=== PATIENT | male | born 1995 | race Caucasian/White ===

== ENCOUNTER 2017-10-20 11:50 | Emergency (ER) | payer BC ==
[2017-10-20 13:56] LABS: ABS Basophils 0.1 10^3/ul (0-0.2); ABS Eosinophils 0.1 10^3/ul (0-0.6); ABS Lymphocytes 1.9 10^3/ul (1.0-4.8); ABS Monocytes 1.5 10^3/ul (0-0.8); ABS Neutrophils 7.4 10^3/ul (1.5-7.7); ABS Nucleated RBC 0 10^3/ul; Hematocrit 44 % (42-52); Hemoglobin 15.5 g/dl (14.0-18.0); Lymphocyte % 17.2 % (25-47); Mean Corpuscular HGB Conc 35 g/dl (31-36); Mean Corpuscular Hemoglobin 32 pg (27-31); Mean Corpuscular Volume 91 fL (80-94); Mean Platelet Volume 6.7 um3 (7.4-10.4); Nucleated Red Blood Cells % 0; Platelet Count 249 10^3/ul (150-450); Red Cell Distribution Width 13 % (10.5-15); White Blood Count 10.9 10^3/ul (3.5-10.8)
[2017-10-20 14:15] LABS: EGFR Non-African American 123.8 (>60)
--- NOTE | 2017-10-20 14:29 | RAD ---
INDICATION: Atraumatic left hip pain COMPARISON: None TECHNIQUE: An AP view of the pelvis and AP views of the hip in neutral and abducted position were obtained FINDINGS: Bones: There are no acute bony findings. There is no plain radiographic evidence of avascular necrosis. Joint spaces: The hips articulate normally. The joint spaces are preserved. SI joints/symphysis: The SI joints and symphysis are intact. Other: None IMPRESSION: NO PLAIN RADIOGRAPHIC ABNORMALITIES.
--- NOTE | 2017-10-20 16:23 | RAD ---
INDICATION: Left hip pain COMPARISON: None TECHNIQUE: Transverse and longitudinal scans of the left hip were performed utilizing grayscale and color Doppler imaging. FINDINGS: There is a small joint effusion. No additional findings. IMPRESSION: THERE IS A SMALL LEFT HIP JOINT EFFUSION.
[2017-10-20] MEDS ORDERED: Acetaminophen TAB* 325 MG PO ONE (18:12)
[2017-10-20 19:25] VITALS: BP 122/70
[2017-10-20 19:36] LABS: Urine Appearance Clear; Urine Blood Negative (Negative); Urine Color Yellow; Urine Ketones Negative (Negative); Urine Protein Negative (Negative); Urine Specific Gravity 1.023 (1.010-1.030); Urine Urobilinogen Negative (Negative)
--- NOTE | 2017-10-31 12:52 | ED ---
Michelle Rosenthal Jason, scribed for Piyush Wells MD on 10/20/17 at 1351 . Lower Extremity - HPI Summary HPI Summary: This patient is a 22 year old M presenting to [facility] with a chief complaint of left hip pain since today. The patient states he began experiencing hip pain today and came in because he has had similar pain 2 years ago that resulted in a surgery. Pt had surgery on his hip to resolve the pain, as the physicians suspected possible infection. Additionally, he has a hx of Colitis. Regarding the pain 2 years ago, it started small and progressed to excruciating pain where I couldnt even move. He includes he went [place] 3 [place]. The patient rates the pain 4/10 in severity. Symptoms aggravated by movement. Symptoms alleviated by nothing. Patient denies testicle pain, and groin lumps. - History of Current Complaint Chief Complaint: EDHipPelvisInjury Stated Complaint: LT HIP INJURY Time Seen by Provider: 10/20/17 13:33 Hx Obtained From: Patient Mechanism Of Injury: Unknown Onset/Duration: Still Present Pain Intensity: 4 Pain Scale Used: 0-10 Numeric Timing: Constant Associated Signs And Symptoms: Positive: Other - left hip pain Aggravating Factor(s): Movement Alleviating Factor(s): Nothing - Allergies/Home Medications Allergies/Adverse Reactions: Allergies Allergy/AdvReac Type Severity Reaction Status Date / Time No Known Allergies Allergy Verified 10/20/17 13:27 Home Medications: Home Medications Mesalamine [Lialda] 4 tab PO .ONCE DAILY 10/20/17 [History Confirmed 10/20/17] PMH/Surg Hx/FS Hx/Imm Hx Previously Healthy: No GI History: Reports: Other GI Disorders - Colitis Musculoskeletal History: Reports: Other Musculoskeletal History - previous history of left hip pain that resulted in surgery. EENT History: Denies: Hx Deafness Infectious Disease History: No Infectious Disease History: Denies: Traveled Outside the [place] in Last 30 Days - Family History Known Family History: Negative: Blood Disorder - Social History Occupation: Student Lives: Alone Alcohol Use: Weekly Alcohol Amount: 2-3 times/week Substance Use Type: Reports: None Smoking Status (MU): Never Smoked Tobacco Review of Systems Genitourinary: Negative - testicle pain Musculoskeletal: Negative - groin lumps Positive: Other - left hip pain All Other Systems Reviewed And Are Negative: Yes Physical Exam - Summary Physical Exam Summary: Constitutional: Well-developed, Well-nourished, Alert. (-) Distressed Skin: Warm, Dry HENT: Normocephalic; Atraumatic Eyes: Conjunctiva normal Neck: Musculoskeletal ROM normal neck. (-) JVD, (-) Stridor, (-) Tracheal deviation Cardio: Rhythm regular, rate normal, Heart sounds normal; Intact distal pulses; The pedal pulses are 2+ and symmetric. Radial pulses are 2+ and symmetric. (-) Murmur Pulmonary/Chest wall: Effort normal. (-) Respiratory distress, (-) Wheezes, (-) Rales Abd: Soft, (-) Tenderness, (-) Distension, (-) Guarding, (-) Rebound Musculoskeletal: (-) Edema. Surgical scars present over last anterior hip. Left hip experiences pain over passive and active range of motion. Lymph: (-) Cervical adenopathy Neuro: Alert, Oriented x3 Psych: Mood and affect Normal Triage Information Reviewed: Yes Vital Signs On Initial Exam: Initial Vitals Temp Pulse Resp BP Pulse Ox 99.0 F 88 18 114/86 96 10/20/17 12:06 10/20/17 12:06 10/20/17 12:06 10/20/17 12:06 10/20/17 12:06 Vital Signs Reviewed: Yes Diagnostics - Vital Signs Vital Signs Temp Pulse Resp BP Pulse Ox 10/20/17 13:05 79 97 10/20/17 13:04 126/74 10/20/17 12:06 99.0 F 88 18 114/86 96 - Laboratory Result Diagrams: 10/20/17 13:47 10/20/17 13:47 Lab Statement: Any lab studies that have been ordered have been reviewed, and results considered in the medical decision making process. - Radiology hip/pelvis xray Radiology Interpretation Completed By: Radiologist - Hip/pelvis xray reveals, per radiologist, NO PLAIN RADIOGRAPHIC ABNORMALITIES. ED physician has reviewed this radiology report. - Additional Comments Diagnostic Additional Comments: Soft tissue ultrasound reveals, per radiologist, THERE IS A SMALL LEFT HIP JOINT EFFUSION. ED physician has reviewed this radiology report. Re-Evaluation - Re-Evaluation First Eval Re-Evaluation Time: 15:34 Change: Improved - Patient was able to ambulate on reevaluation. Pain occurred only during internal rotation of the hip. Lower Extremity Course/Dx - Course Assessment/Plan: There is left hip experiences pain over passive and active range of motion. Dr. Wells has a concern for possible bursitis, arthritis, secondary to ulcerative colitis. At 1545, he discussed labs with Dr. Rodriguez ( orthopedics midwife practitioner), who stated there is no risk of septic joint. Additionally , at 1553 Dr. Wells discussed the patients condition with the patients mother , who is a psychiatrist. The mother states she discussed the patients condition with the patients orthopedist in [place] and requested that an ultrasound be performed. Dr. Wells discussed his case again with Dr. Rodriguez as well as with Dr. Zarco. We discussed the small hip effusion on US, negative markers, and outpatient management. The effusion is likely to overuse. Dr. Wells discussed with his mother, she is in agreement with this plan. I encouraged him not to take his trip to [place] and to return home. We will provide crutches. Patient will be discharged and follow up with Dr. Zarco in 3-5 days. Patient is agreeable with this plan. Dx of left hip effusion. - Diagnoses Provider Diagnoses: Effusion, left hip Discharge - Sign-Out/Discharge Documenting (check all that apply): Discharge - Discharge Plan Condition: Stable Disposition: HOME Patient Education Materials: Swollen Hip Joint (ED) Referrals: Delia Zarco MD [Other] - 5 Days Additional Instructions: RETURN TO THE EMERGENCY DEPARTMENT FOR CHANGING OR WORSENING SYMPTOMS The documentation as recorded by the Michelle crump Jason accurately reflects the service I personally performed and the decisions made by , Piyush Wells MD.
== END 2017-10-20 18:40 | disposition home or self-care (01) ==
LOC: ED 11:50
DX: M25.452 Effusion, left hip (principal); M25.552 Pain in left hip
CPT/HCPCS: 36415; 80053; 81003; 83605; 83690; 85025; 85652; 86140; 99283

== ENCOUNTER 2018-10-06 20:28 | Emergency (ER) | payer BC ==
[2018-10-06 20:50] VITALS: BP 115/71
[2018-10-06] MEDS ORDERED: Sulfamethox/Trimethoprim DS 800/160* TAB PO ONE (21:34)
--- NOTE | 2018-10-06 21:35 | UC ---
Skin Complaint HPI - HPI Summary HPI Summary: tender area left lateral upper thigh---red warm tender to touch worsening over the course of the day - History of Current Complaint Chief Complaint: UCSkin Time Seen by Provider: 10/06/18 21:29 Stated Complaint: L LEG SKIN COMPLAINT Hx Obtained From: Patient Hx From Patient Unobtainable Due To: Other Onset/Duration: Sudden Onset, Lasting Days - 1, Still Present, Worse Since - getting worse through out the day Timing: Constant Onset Severity: Mild Current Severity: Moderate Location: Discrete Character: Redness, Raised Aggravating Factor(s): Touch Alleviating Factor(s): Nothing Associated Signs & Symptoms: Positive: Tenderness. Negative: Drainage - Allergy/Home Medications Allergies/Adverse Reactions: Allergies Allergy/AdvReac Type Severity Reaction Status Date / Time droperidol Allergy See Comment Verified 10/06/18 20:53 metoclopramide [From Reglan] Allergy See Comment Verified 10/06/18 20:53 Home Medications: Home Medications Escitalopram * [Lexapro *] 20 mg PO DAILY 10/06/18 [History Confirmed 10/06/18] PMH/Surg Hx/FS Hx/Imm Hx Previously Healthy: Yes GI/ History: Other Other GI/ History: IBS Psychological History: Anxiety - Surgical History Surgical History: Yes Surgery Procedure, Year, and Place: left hip joint drained - Family History Known Family History: Positive: None Negative: Blood Disorder - Social History Occupation: Student Lives: Dormitory/Roommates Alcohol Use: Weekly Alcohol Amount: 2-3 times/week Substance Use Type: None Smoking Status (MU): Never Smoked Tobacco Review of Systems All Other Systems Reviewed And Are Negative: Yes Constitutional: Positive: Negative Skin: Positive: Other - 2 inch diameter red indurated area no drainage Eyes: Positive: Negative ENT: Positive: Negative Respiratory: Positive: Negative Cardiovascular: Positive: Negative Gastrointestinal: Positive: Negative Genitourinary: Positive: Negative Motor: Positive: Negative Neurovascular: Positive: Negative Musculoskeletal: Positive: Negative Neurological: Positive: Negative Psychological: Positive: Negative Is Patient Immunocompromised?: Yes Physical Exam Triage Information Reviewed: Yes Appearance: Well-Appearing, No Pain Distress, Well-Nourished Vital Signs: Initial Vital Signs Temp 99.0 F 10/06/18 20:47 Pulse 64 10/06/18 20:47 Resp 16 10/06/18 20:47 BP 115/71 10/06/18 20:47 Pulse Ox 98 10/06/18 20:47 Vital Signs Reviewed: Yes Eye Exam: Normal Eyes: Positive: Conjunctiva Clear ENT Exam: Normal ENT: Positive: Normal ENT inspection, Hearing grossly normal. Negative: Nasal congestion, Trismus, Muffled voice, Hoarse voice Dental Exam: Normal Neck exam: Normal Neck: Positive: Supple, Nontender Respiratory Exam: Normal Respiratory: Positive: Chest non-tender, No respiratory distress, No accessory muscle use Cardiovascular Exam: Normal Cardiovascular: Positive: RRR, Pulses Normal, Brisk Capillary Refill Musculoskeletal Exam: Normal Musculoskeletal: Positive: Strength Intact, ROM Intact, No Edema Neurological Exam: Normal Neurological: Positive: Alert, Muscle Tone Normal Psychological Exam: Normal Skin Exam: Other Skin: Positive: Other - 2 inch diameter erythema induation lateral upper left thigh Course/Dx - Course Course Of Treatment: warm compresses 5-6 times a day, bactrim, follow with [facility] or return as needed - Diagnoses Provider Diagnosis: Abscess of left thigh Discharge - Sign-Out/Discharge Documenting (check all that apply): Patient Departure All imaging exams completed and their final reports reviewed: No Studies - Discharge Plan Condition: Stable Disposition: HOME Prescriptions: Sulfamethox/Trimethoprim DS* [Bactrim DS 800/160 TAB*] 1 tab PO BID #13 tab Patient Education Materials: Sulfamethoxazole/Trimethoprim (By mouth), Abscess (ED), Heat Pack Application (ED) Referrals: No Primary Care Phys,NOPCP [Primary Care Provider] - Additional Instructions: follow with primary care or [facility] as needed---- - Billing Disposition and Condition Condition: STABLE Disposition: Home
== END 2018-10-06 21:45 | disposition home or self-care (01) ==
LOC: UCEAST 20:28
DX: L02.416 Cutaneous abscess of left lower limb (principal); F41.9 Anxiety disorder, unspecified; Z88.8 Allergy status to other drugs, medicaments and biological substances; Z79.899 Other long term (current) drug therapy
CPT/HCPCS: 99212; A9270-GY; G0463